=== PATIENT | male | born 1955 | race Two or more races ===

== ENCOUNTER 2016-07-20 12:48 | Emergency (ER) | payer OTHER ==
[~2016-07-20] VITALS: Ht 165.1 cm; Wt 81.6 kg
[~2016-07-20 12:48] MED LIST: AMOXICILLIN500 MG ORAL; ATENOLOL50 MG ORAL; ATORVASTATIN CA20 MG ORAL; FERROUS SULFAT325 MG ORAL; IBUPROFEN600 MG ORAL; LOPRESSOR25 M1 ORAL; METOPROLOL TAR100 MG ORAL; NKM; NO HOME MEDS; OMEPRAZOLE20 M2 ORAL; OMEPRAZOLE40 M1 ORAL; PACERONE200 MG ORAL; PAROXETINE HCL10 MG ORAL; RANITIDINE HCL150 MG ORAL; SIMVASTATIN20 MG ORAL; VICODIN 5-5001 EACH PO; XARELTO10 MG ORAL; ZOFRAN4 MG ORAL
[2016-07-20] MEDS ORDERED: AMIODARONE HCL400 M1 ORAL (13:17)
[2016-07-20] MEDS ORDERED: LISINOPRIL5 MG ORAL (13:17)
[2016-07-20] MEDS ORDERED: LORazepam 1mg tab ORAL ONE (13:30)
--- NOTE | 2016-07-20 13:44 | Emergency Room Report ---
History of Present Illness General Chief Complaint: General Complaint Present Illness HPI Patient presents reporting that he had been drinking somewhat heavily over the past 5 days 2 days ago he began having epigastric irritation and discomfort therefore he has not drank for the last 2 days and started feeling some of the patient's and agitation denies any visual or auditory hallucination denies any chest pain or shortness of breath denies any lower abdominal pain denies any vomiting of blood Denies any fall or trauma Allergies: Coded Allergies: No Known Allergies (Unverified , 02/05/12) Patient History Past Medical History: see triage record Pertinent Family History: none Reviewed Nursing Documentation: PMH: Agreed, PSxH: Agreed Nursing Documentation-PMH Hx Cardiac Problems: Yes - A-fib Hx Hypertension: Yes History Of Psychiatric Problem: Yes - Depression Review of Systems All Other Systems: negative except mentioned in HPI Physical Exam Vital Signs Date Time Temp Pulse Resp B/P Pulse Ox O2 Delivery O2 Flow Rate FiO2 07/20/16 13:08 98.2 72 16 130/56 97 Room Air Sp02 EP Interpretation: reviewed, normal General Appearance: well appearing, no apparent distress Head: normocephalic, atraumatic Eyes: bilateral eye EOMI, bilateral eye PERRL ENT: hearing grossly normal, normal pharynx, TMs + canals normal, uvula midline Neck: full range of motion, supple, no meningismus, no bony tend Respiratory: lungs clear, normal breath sounds, no rhonchi, no respiratory distress, no retraction, no accessory muscle use Cardiovascular #1: normal peripheral pulses, regular rate, rhythm, no edema, no gallop, no JVD, no murmur Gastrointestinal: normal bowel sounds, non tender, soft, no mass, no organomegaly, non-distended, no guarding, no hernia, no pulsatile mass, no rebound Genitourinary: no CVA tenderness Musculoskeletal: normal inspection - no signs of any tremors Neurologic: oriented x3, responsive, sharepoint specialist III-XII nml as tested, motor strength/ tone normal, sensory intact Psychiatric: mood/affect normal Skin: normal color, no rash, warm/dry, palpation normal Lymphatic: normal inspection, no adenopathy Medical Decision Making Diagnostic Impression: Primary Impression: Alcohol withdrawal ER Course Patient has signs of likely alcoholic gastritis along with early signs of mild withdrawal No signs of any tachycardia, patient is hemodynamically stable And at this time is appropriate for initial conservative outpatient trial Rhythm Strip Diag. Results EP Interpretation: yes Rate: 78 Rhythm: NSR, no PVC's, no ectopy Last Vital Signs Date Time Temp Pulse Resp B/P Pulse Ox O2 Delivery O2 Flow Rate FiO2 07/20/16 13:08 98.2 72 16 130/56 97 Room Air Status: improved Disposition: HOME, SELF-CARE Condition: Improved Scripts Lorazepam* (ATIVAN*) 1 Mg Tablet 1 MG ORAL BEDTIME, #10 TAB Prov: ELMO LOWE D.O. 07/20/16 Famotidine (PEPCID) 40 Mg Tablet 40 MG PO DAILY, #14 TAB 0 Refills Prov: ELMO LOWE D.O. 07/20/16 Ondansetron Odt* (ZOFRAN ODT*) 4 Mg Tab.rapdis 4 MG ORAL Q6H Y for Nausea & Vomiting, #15 TAB 0 Refills Prov: ELMO LOWE D.O. 07/20/16 Additional Instructions: Patient is provided with the discharge instructions notified to follow up with primary doctor in the next 2-3 days otherwise return to the er with any worsening symptoms. Please note that this report is being documented using [employer] technology. This can lead to erroneous entry secondary to incorrect interpretation by the dictating instrument. ELMO LOWE D.O. Jul 20, 2016 13:44
[2016-07-20] MEDS ORDERED: ATIVAN1 MG ORAL (13:50)
[2016-07-20] MEDS ORDERED: ZOFRAN ODT4 MG ORAL (13:50)
[2016-07-20] MEDS ORDERED: PEPCID40 MG PO (13:50)
[2016-07-20 14:01] VITALS: BP 130/56
[2016-07-20 14:16] VITALS: BP 124/74
[2016-07-20 14:17] VITALS: BP 126/74
--- NOTE | 2016-07-24 17:05 | Cardiology Report ---
APPROVED REPORT EKG Measurement Heart [id number] Normal sinus rhythm Normal ECG
== END 2016-07-20 14:20 | disposition home or self-care (01) ==
LOC: EMR 14:03
DX: F10.239 Alcohol dependence with withdrawal, unspecified (principal); I10 Essential (primary) hypertension; F32.9 Major depressive disorder, single episode, unspecified; I48.91 Unspecified atrial fibrillation
CPT/HCPCS: 93005; 99284